=== PATIENT | male | born 2000 | race Caucasian/White ===

== ENCOUNTER 2018-08-19 00:23 | Emergency (ER) | payer BC ==
[2018-08-19] MEDS ORDERED: Lidocaine 1% w/Epinephrine 1:100K 20 ML VIAL ONE (01:19)
== END 2018-08-19 02:42 | disposition home or self-care (01) ==
LOC: ERS 00:23
DX: L05.01 Pilonidal cyst with abscess (principal)
CPT/HCPCS: 10080; J2001

== ENCOUNTER 2020-02-18 05:57 | Emergency (ER) | payer BC ==
[2020-02-18] MEDS ORDERED: Ondansetron PF 4 MG/2 ML Vial ONE (06:09)
[2020-02-18 06:25] LABS: #Basophils 0.1 thou/uL (0.0-0.2); #Eosinphils 0.3 thou/uL (0.0-0.7); #Lymphocytes 2.4 thou/uL (1.20-3.40); #Monocytes 0.8 thou/uL (0.11-0.59); #Neutrophils 3.8 thou/uL (1.40-6.50); %Basophils 0.9 % (0.0-1.0); %Eosinophils 3.9 % (0.0-10.0); %Lymphocytes 32.1 % (21.0-51.0); %Monocytes 11.2 % (0.0-10.0); Hemoglobin 15.3 g/dL (14.0-18.0); Mean Corpuscular HGB CONC 33.8 g/dL (32.0-36.0); Mean Corpuscular Hemoglobin 29.5 pg (27.0-31.0); Mean Corpuscular Volume 87.3 fL (78.0-98.0); Platelet Count 286 thou/uL (130-400); RBC Distribution Width 11.2 % (11.5-14.5); Red Blood Cell (RBC) Count 5.19 mill/uL (4.70-6.10); White Blood Cell (WBC) Count 7.4 thou/uL (4.8-10.8)
[2020-02-18 06:29] LABS: INR-International Normal Ratio 0.9; PTT 25.6 sec (22.9-36.1)
[2020-02-18 06:45] LABS: ALT (SGPT) 41 U/L (8-55); AST (SGOT) 25 U/L (5-34); Albumin 4.9 g/dL (3.5-5.0); Alkaline Phosphatase 80 U/L (40-110); Anion Gap 15 mmol/L (10-20); BUN (Urea Nitrogen) 13 mg/dL (8.9-20.6); Bilirubin, Total 0.4 mg/dL (0.2-1.2); Calc. Creatinine Clearance 0 mL/min (70-130); Calcium 9.2 mg/dL (7.8-10.44); Carbon Dioxide 30 mmol/L (22-29); Chloride 107 mmol/L (98-107); Globulin 2.6 g/dL (2.4-3.5); Glucose 101 mg/dL (70-105); Potassium 3.8 mmol/L (3.5-5.1); Protein, Total 7.5 g/dL (6.0-8.3); Sodium 148 mmol/L (136-145)
--- NOTE | 2020-02-18 07:30 | RAD ---
Portable frontal chest radiograph: 02/18/2020 COMPARISON: None HISTORY: Sepsis protocol, vomiting blood FINDINGS: Lungs are clear. Heart and mediastinal contours appear within normal limits. IMPRESSION: No acute findings.
== END 2020-02-18 06:58 | disposition home or self-care (01) ==
LOC: ERS 05:57
DX: K92.0 Hematemesis (principal)
CPT/HCPCS: 71045; 80053; 85025; 85610; 85730; 96374; J2405